=== PATIENT | male | born 1940 | race Caucasian/White ===

== ENCOUNTER 2017-01-01 17:47 | Inpatient (IN) | payer MEDICARE ==
[~2017-01-01] VITALS: Ht 185.4 cm; Wt 82.6 kg
[2017-01-01 20:01] LABS: BASOPHIL % 0.5 % (0-2); PLATELET COUNT 226 x10^3mcL (130-400); RED CELL DISTRIBUTION WIDTH 13.9 % (11.5-14.5)
[2017-01-01 20:04] LABS: ALBUMIN 3.4 g/dL (3.4-5.0); ALKALINE PHOSPHATASE 111 U/L (46-116); ALT/SGPT 36 U/L (16-63); AST/SGOT 29 U/L (15-37); BILIRUBIN TOTAL 0.2 mg/dL (0.20-1.00); CALCIUM 8.9 mg/dL (8.5-10.1); CARBON DIOXIDE 27.7 mmol/L (21-32); CHLORIDE SERUM 101 mmol/L (98-107); CREATININE SERUM 1.1 mg/dL (0.7-1.3); GLUCOSE SERUM 89 mg/dL (74-106); SODIUM SERUM 133 mmol/L (136-145); TOTAL PROTEIN, SERUM 6.9 g/dL (6.4-8.2)
[2017-01-01 20:06] LABS: POTASSIUM SERUM 5.9 mmol/L (3.5-5.1)
[2017-01-01] MEDS ORDERED: CENTRUM SILVER1 EACH PO (22:18)
[2017-01-01] MEDS ORDERED: LIPI10 PO (22:18)
[2017-01-01] MEDS ORDERED: TAMSULOSIN HYD0.4 M1 PO (22:18)
[2017-01-01] MEDS ORDERED: NATURE'S BLEND F1 MG PO (22:18)
[2017-01-01] MEDS ORDERED: NATURE'S BLEND100 M2 PO (22:19)
[2017-01-01] MEDS ORDERED: PHARMASSURE VI500 MG PO (22:20)
[2017-01-01] MEDS ORDERED: APAP500 MG PO (22:21)
[2017-01-01] MEDS ORDERED: GERI-LANTA355 ML PO ×2 (22:21→22:22)
[2017-01-01] MEDS ORDERED: PROMETHAZI6.25 MG/5 PO (22:22)
[2017-01-01] MEDS ORDERED: GOOD SENSE400 MG/5 M PO (22:22)
[2017-01-01] MEDS ORDERED: [UNRECOGNIZED DRUG - CODE] SQ (22:23)
[2017-01-01 22:53] VITALS: BP 168/81
[2017-01-01 23:00] VITALS: Ht 185.4 cm; Wt 82.6 kg
[2017-01-01 23:41] LABS: MAGNESIUM 1.8 mg/dL (1.8-2.4); PHOSPHOROUS 4.4 mg/dL (2.5-4.9)
[2017-01-01 23:43] LABS: T3 TOTAL 1.03 ng/mL
[2017-01-01 23:47] LABS: CHOLESTEROL/HDL RATIO 1.8
[2017-01-01 23:49] LABS: FREE T4 1.06 ng/dL (0.76-1.46); FREE THYROXINE INDEX 2.8 ug/dL (1.4-4.5); T4(THYROXINE) 7.8 ug/dL (4.7-13.3)
[2017-01-02 02:26] LABS: microscopic required? NO
[2017-01-02 02:30] LABS: UA SPECIFIC GRAVITY <=1.005 (1.005-1.035); urine erythrocyte NEGATIVE (NEGATIVE)
[2017-01-02 02:41] LABS: AMPHETAMINE QUAL UR NONE DETECTED (NEG <=1000)
[2017-01-02 06:16] VITALS: BP 155/71
[2017-01-02 06:48] LABS: PLATELET COUNT 197 x10^3mcL (130-400); RED CELL DISTRIBUTION WIDTH 13.7 % (11.5-14.5)
[2017-01-02 07:23] VITALS: BP 155/71
[2017-01-02 08:52] LABS: CALCIUM 8.8 mg/dL (8.5-10.1); CARBON DIOXIDE 25.7 mmol/L (21-32); CHLORIDE SERUM 104 mmol/L (98-107); CREATININE SERUM 0.9 mg/dL (0.7-1.3); GLUCOSE SERUM 90 mg/dL (74-106); MAGNESIUM 1.6 mg/dL (1.8-2.4); PHOSPHOROUS 4.4 mg/dL (2.5-4.9); POTASSIUM SERUM 5.4 mmol/L (3.5-5.1); SODIUM SERUM 138 mmol/L (136-145)
[2017-01-02 10:18] VITALS: BP 122/69
[2017-01-02 10:52] LABS: BAND NEUTROPHIL 0 % (0-10); BASOPHIL 0 % (0-2); MONOCYTE 11 % (0-7); SEGMENTED NEUTROPHILS 74 % (37-75)
[2017-01-02 10:53] LABS: PLATELET MORPHOLOGY PLATELETS NORMAL
[2017-01-02 17:04] VITALS: BP 114/54
[2017-01-02 21:16] VITALS: BP 150/75
[2017-01-03 05:44] VITALS: BP 138/64
[2017-01-03 08:38] LABS: BASOPHIL % 0.4 % (0-2); PLATELET COUNT 225 x10^3mcL (130-400); RED CELL DISTRIBUTION WIDTH 13.6 % (11.5-14.5)
[2017-01-03 08:58] LABS: CALCIUM 8.7 mg/dL (8.5-10.1); CARBON DIOXIDE 26.9 mmol/L (21-32); CHLORIDE SERUM 105 mmol/L (98-107); CREATININE SERUM 0.8 mg/dL (0.7-1.3); GLUCOSE SERUM 106 mg/dL (74-106); MAGNESIUM 1.8 mg/dL (1.8-2.4); POTASSIUM SERUM 4.1 mmol/L (3.5-5.1); SODIUM SERUM 141 mmol/L (136-145)
[2017-01-03 10:33] VITALS: BP 110/60
[2017-01-03] MEDS ORDERED: KEFLEX500 M1 PO (11:56)
[2017-01-03] MEDS ORDERED: ZES20 PO (11:57)
[2017-01-03] MEDS ORDERED: BD LACTINEX1.4 MG PO (12:00)
[2017-01-03 12:03] VITALS: BP 110/60
[2017-01-03] MEDS ORDERED: CARVEDILOL3.125 M1 PO (12:41)
[2017-01-03] MEDS ORDERED: HYDRALAZINE HCL25 MG PO (12:42)
[2017-01-03 13:48] VITALS: BP 132/66
== END 2017-01-03 14:40 | DRG 602 ==
LOC: ED 17:47 → DU 21:51
PROVIDERS: Emergency Medicine; ADMIT Family Medicine
DX: L03.116 Cellulitis of left lower limb (principal); N17.0 Acute kidney failure with tubular necrosis; E87.1 Hypo-osmolality and hyponatremia; I45.2 Bifascicular block; L03.115 Cellulitis of right lower limb; E86.0 Dehydration; E87.6 Hypokalemia; R00.1 Bradycardia, unspecified; R73.03 Prediabetes; D64.9 Anemia, unspecified; E78.5 Hyperlipidemia, unspecified; I10 Essential (primary) hypertension; M17.0 Bilateral primary osteoarthritis of knee; M19.022 Primary osteoarthritis, left elbow; M19.021 Primary osteoarthritis, right elbow; N40.0 Benign prostatic hyperplasia without lower urinary tract symptoms; Z87.891 Personal history of nicotine dependence; Z68.24 Body mass index [BMI] 24.0-24.9, adult
CPT/HCPCS: 83880; 84439; J0690; J1815; J1885; J1940; J3475; J3490; J7030; J7040; J7613; Q0092